=== PATIENT | male | born 1935 | race Caucasian/White ===

== ENCOUNTER 2017-12-29 09:18 | Inpatient (IN) | payer MEDICARE ==
[2017-12-29 11:56] LABS: ABS Basophils 0.1 10^3/ul (0-0.2); ABS Eosinophils 0 10^3/ul (0-0.6); ABS Monocytes 0.9 10^3/ul (0-0.8); ABS Nucleated RBC 0 10^3/ul; Eosinophil % 0.2 % (0-6); Hematocrit 41 % (42-52); Hemoglobin 13.5 g/dl (14.0-18.0); Lymphocyte % 6.9 % (25-47); Mean Corpuscular HGB Conc 33 g/dl (31-36); Mean Corpuscular Hemoglobin 30 pg (27-31); Mean Corpuscular Volume 91 fL (80-94); Nucleated Red Blood Cells % 0.1; Platelet Count 207 10^3/ul (150-450); Red Blood Count 4.51 10^6/ul (4.0-5.4); Red Cell Distribution Width 14 % (10.5-15)
--- NOTE | 2017-12-29 12:47 | RAD ---
INDICATION: Shortness of breath. COMPARISON: Comparison is made with a prior study from May 01, 2014. TECHNIQUE: Dual-energy PA and lateral views of the chest were obtained. FINDINGS: The heart is within normal limits in size. Mediastinal and hilar contours appear within normal limits. The lungs are underinflated. There is a small infiltrate at the right lung base. There appears to be a trace right pleural effusion. No pneumothorax is seen. IMPRESSION: LOW LUNG VOLUMES, SMALL RIGHT BASILAR INFILTRATE.
--- NOTE | 2017-12-29 12:50 | RAD ---
INDICATION: Right rib pain. TECHNIQUE: 4 views of the right ribs were obtained. FINDINGS: The bones appear osteopenic. No fracture is seen. IMPRESSION: NO EVIDENCE FOR FRACTURE.
[2017-12-29] MEDS ORDERED: Levofloxacin 750 MG IVPREMIX(* 750 MG/150 ML BAG IVPB ONE (13:10)
--- NOTE | 2017-12-29 15:08 | ED ---
Anmol Mathur Angela, scribed for Sb Cuevas on 12/29/17 at 1414 . Progress - Progress Note Progress Note: This pt was signed out by Dr. Johnson, pending disposition, awaiting lab work. Lab work, chest XR, right ribs XR, and EKG were obtained. Right ribs XR is negative for fractures. Chest XR shows low lung volumes, small right basilar infiltrate. In the ED course the pt was given Levaquin. I discussed pt care with Dr. Marcano, hospitalist, who has agreed to admit the pt. Re-Evaluation - Re-Evaluation First Eval Re-Evaluation Time: 14:14 Change: Worse Comment: I reviewed the lab and XR results with the pt. Pt is still c/o pain. He is saturating at 90% on room air. Course/Dx - Diagnoses Provider Diagnoses: Pneumonia - Provider Notifications Discussed Care Of Patient With: Jonathan Marcano Time Discussed With Above Provider: 15:03 Instructed by Provider To: Other - I discussed pt care with Dr. Marcano, hospitalist, who has agreed to admit the pt. Discharge - Sign-Out/Discharge Documenting (check all that apply): Discharge/Admit/Transfer - admit to [facility], Receiving Sign-Out Receiving patient FROM: Ang Johnson - Discharge Plan Condition: Stable Disposition: ADMITTED TO [facility] Referrals: Scott Cintron MD [Primary Care Provider] - The documentation as recorded by the Anmol will Angela accurately reflects the service I personally performed and the decisions made by , Sb Cuevas.
[2017-12-29] MEDS ORDERED: Albuterol 2.5 MG/3 ML NEB.SOL* (0.083%) INH PRN (15:39)
[2017-12-29] MEDS ORDERED: Ondansetron INJ* 2 MG/ML VIAL IV PRN (15:39)
[2017-12-29] MEDS ORDERED: NS 0.9% 1000 ML* 1,000 ML IV ONE (15:39)
[2017-12-29] MEDS ORDERED: NS 0.9% 1000 ML* 1,000 ML IV SCH (15:45)
[2017-12-29] MEDS ORDERED: Acetaminophen TAB* 325 MG ONE (15:47)
[2017-12-29] MEDS: Acetaminophen TAB* 325 MG PO PRN ×2 (15:50→20:41)
--- NOTE | 2017-12-29 18:21 | HP ---
CC: Dr. Cintron* HISTORY AND PHYSICAL: DATE OF ADMISSION: 12/29/17 PRIMARY CARE PROVIDER: Dr. Cintron ATTENDING PHYSICIAN WHILE IN THE HOSPITAL: Fernando Marcano MD* (report dictated by Wesley Red NP) CHIEF COMPLAINT: 1. Lower back pain, right side. 2. Weakness. 3. Not feeling well. HISTORY OF PRESENT ILLNESS: Mr. Schuster is an 82-year-old male patient. He has a history of prostate cancer, intracranial hemorrhage. He also has a history of GERD. He comes into the ER today stating that the last few days, he has been having worsening pain particularly over the weekend in his right side and his right back. He thought maybe he had pulled a muscle. He was also noted to be feeling weak. He denies having any cough. Denies any fevers or chills, but he noted today that he his chest hurt really when he took a deep breath, both sides, his ribs hurt and ribcage hurt. He just was not feeling well and now, he is kind of he says he is aching all over. He says the discomfort just was not getting any better. He was very concerned, so he decided to come into the emergency department. He says that he has not been having any nausea, vomiting. There has been no diarrhea. He denies having any abdominal discomfort. He says he has just been feeling more weak and tired. He was concerned and came into the ER. It was found that he had an elevated white count. It was found that he appear to have pneumonia on his right side and because of these findings were were asked to evaluate for admission and during my evaluation, he was running a fever at a 100.3. PAST MEDICAL HISTORY: Significant for: 1. Prostate cancer. 2. Intracranial hemorrhage. 3. GERD. PAST SURGICAL HISTORY: 1. He has had a prostatectomy. 2. He has had a gastrectomy with a vagotomy. 3. Hernia repair. 4. He has had chest tube placement. 5. He has had a hemorrhoidectomy. 6. Tonsillectomy. 7. Laparoscopic cholecystectomy. 8. Cataract extraction. MEDICATIONS: Home medications include: 1. Omeprazole 40 mg daily. 2. Fish oil 1000 mg p.o. daily. 3. Multivitamin 1 tablet daily. 4. Propranolol 30 mg p.o. b.i.d. ALLERGIES TO MEDICATIONS: Include ASPIRIN. FAMILY HISTORY: His mother had a high blood pressure and of an PA. Father had a history of black lung disease and from complications related to this. SOCIAL HISTORY: He does not smoke. He does not drink. Surrogate decision maker is his . REVIEW OF SYSTEMS: There is no documented fever at home just now, he did state that he was feeling chills. He denies having any significant weight change. There is no double vision. There is no ear discharge. He denies having any rhinorrhea. There is no sore throat. No thyroid enlargement. There was chest discomfort today, he said in his ribcage there is a sharp pain worse with taking a deep breath, but he could not get a deep breath, and he denies having any abdominal pain. There is no nausea, no vomiting. There is no dysuria. There was no frequency. There was no seizure. There was no loss of consciousness. There is no pruritus and no skin ulceration. Review of 14 systems was completed, all others negative. PHYSICAL EXAMINATION GENERAL: At this time, Mr. Schuster is an 82-year-old male patient. He is sitting in the ED stretcher. He does not appear to be in any acute distress. VITAL SIGNS: Blood pressure 129/70, pulse 96, respirations 20, O2 sat 95%, temperature 98.8. HEENT: Head: Atraumatic, normocephalic. Eyes: EOMs are intact. Sclerae anicteric and not pale. Throat: Oral mucosa appears to be dry. No oropharyngeal erythema. NECK: Supple. LUNGS: He had equal diaphragmatic expansion. He had some some crackles in the right base. HEART: Sounds S1, S2. Regular rate and rhythm. No murmurs, rubs, or gallops. ABDOMEN: Soft, flat, nontender. Bowel sounds were present. EXTREMITIES: Pulses were 2+ throughout. He is able to move all 4 extremities with 5/5 strength. NEUROLOGIC: The patient is awake. He is alert. He is oriented x3. His vascular neurologist were equal. He had no gross focal deficits. SKIN: Grossly intact. DIAGNOSTIC STUDIES/LAB DATA: Labs today, WBC of 15.0, RBC of 4.51, hemoglobin of 13.5, hematocrit of 41, platelet count of 207. Sodium was 138, potassium was 4, chloride 100, bicarb 26, BUN 14, creatinine 0.91, lactate of 1.1, calcium of 9. Total bili 0.5, AST 21, ALT 15, alk phos 139. CK 50, CK-MB 3.2, troponin 0.01, CRP of 18, albumin of 3.6. He had a chest x-ray obtained today, impression: Low lung volumes, small right basilar infiltrate. EKG shows a normal sinus rhythm, rate of 79 and flatten T-waves in lead 3, but no ST elevations were noted. The T waves in lead 3 had been inverted in the past. He had a rib x-rays as well, showed no evidence of fracture. X-ray when I reviewed it, I do see the small infiltrate in the right side. Old medical records reviewed. ASSESSMENT AND PLAN: Mr. Schuster is an 82-year-old male patient coming into the ER today with complaints of not feeling well, back pain, weakness. On evaluation here in the ED, found to have signs of early sepsis and also found to have what appears to be a pneumonia as a source. He will be admitted under inpatient status for: 1. Sepsis secondary to pneumonia. At this point, I will go head and give him a liter of fluids wide open. His blood pressure is stable. Heart rate is still tachy. He has got the white count of 15,000. His heart rates around 96 to 100. He has low-grade fever. He has been put on Levaquin. I will get legionella and strep pneumoniae antigen; in addition at this point I will also check him for flu. I will hydrate him and also we will check his urine and we will continue to follow. 2. Prostate cancer. Follow with his primary. 3. History of intracranial hemorrhage. This happened 4 years ago. Because of this, I am actually going to hold heparin subcutaneously. 4. For DVT prophylaxis, I am going to go ahead and just put him on SCDs. 5. Gastroesophageal reflux disease. Continue PPI therapy. 6. Code status. Full code. 7. Fluids, electrolytes, and nutrition. He can have a regular diet. TIME SPENT: On admission 60 minutes, greater than half the time was spent face- to- face with the patient obtaining my history and physical, other half the time was spent going over the plan of care with the patient and implementing plan of care. I did discuss the plan of care with my attending, Dr. Marcano; he is in agreement. WESLEY RED NP [id number]/[facility] #: [id number] JANE
[2017-12-29 19:24] LABS: Urine Appearance Clear; Urine Blood Negative (Negative); Urine Color Yellow; Urine Ketones 1+ (Negative); Urine Protein Negative (Negative); Urine Specific Gravity 1.018 (1.010-1.030); Urine Urobilinogen Negative (Negative)
[2017-12-29] MEDS: Propranolol TAB* 20 MG PO SCH (20:42)
--- NOTE | 2017-12-29 20:56 | ED ---
Anmol Mathur Angela, scribed for Ang Johnson MD on 12/29/17 at 1043 . Shortness of Breath - HPI Summary HPI Summary: This pt is a 82 y/o male presenting to [facility] c/o SOB for the past 1.5 years, worse now. Pt reports he had a hard time breathing this morning upon waking up and was unable to take deep breaths. He states he also has right sided rib pain. Pt notes he has to sleep on his left side because if he sleep on the right side, his rib pain will be aggravated. His rib pain is worse in the mornings. Denies cough, fever, chest pain. - History of Current Complaint Chief Complaint: EDShortnessOfBreath Time Seen by Provider: 12/29/17 10:02 Hx Obtained From: Patient Onset/Duration: Lasting Weeks, Still Present Timing: Constant Current Severity: Mild Aggrevating Factors: Nothing Alleviating Factors: Nothing Associated Signs & Symptoms: Negative - Allergy/Home Medications Allergies/Adverse Reactions: Allergies Allergy/AdvReac Type Severity Reaction Status Date / Time aspirin Allergy Bleeding Verified 12/29/17 09:25 Home Medications: Home Medications Multivitamins/Minerals TAB* [Theragran/minerals TAB*] 1 tab PO DAILY 12/29/17 [ History Confirmed 12/29/17] [place]-3 Fatty Acids (Nf) [Fish Oil (NF)] 1,000 mg PO DAILY 12/29/17 [History Confirmed 12/29/17] Omeprazole CAP* [Prilosec CAP* 20 MG] 40 mg PO DAILY 12/29/17 [History Confirmed 12/29/17] Propranolol TAB* [Inderal TAB*] 30 mg PO BID 12/29/17 [History Confirmed ] PMH/Surg Hx/FS Hx/Imm Hx Endocrine/Hematology History: Reports: Hx Anemia - VIT B12 MONTHLY Denies: Hx Diabetes - pt denies Cardiovascular History: Reports: Hx Hypertension - ON DAILY MEDS Respiratory History: Reports: Hx Pulmonary Edema - 7 YR OLD, NO PROBLEMS SINCE Comment Only: Other Respiratory Problems/Disorders - PNEUMONIA AGE 7 & 10 GI History: Reports: Hx Gastroesophageal Reflux Disease - ON DAILY MEDS, Hx Ulcer, Other GI Disorders - CHRONIC GASTRITIS, BLEEDING 1970s Musculoskeletal History: Reports: Hx Arthritis - GENERALIZED, Hx Bursitis - BOTH ELBOWS, INJURY 08/2013 Sensory History: Reports: Hx Cataracts - BILATERAL Opthamlomology History: Reports: Hx Cataracts - BILATERAL - Cancer History Cancer Type, Location and Year: prostate 1992 no radiation or chemo - Surgical History Surgery Procedure, Year, and Place: 1992 prostate CANCER. 1975 part of stomach removed r/t aspin r/t. 1973 hemorrhage per pt , vagus nerve surgery. surgery as a child for fluid in lungs following pneumonia,. 1995 BILATERAL HERNIA REPAIR. 2007 BILATERAL CATARACTS. 04/2014 subarachnoid BLEEDED, DRAINED x2 Hx Anesthesia Reactions: No Infectious Disease History: No Infectious Disease History: Denies: Traveled Outside the [place] in Last 30 Days - Family History Known Family History: Positive: Cardiac Disease, Hypertension - Social History Alcohol Use: None Substance Use Type: Reports: None Smoking Status (MU): Never Smoked Tobacco Have You Smoked in the Last Year: No Review of Systems Negative: Fever, Chills Negative: Chest Pain Positive: Shortness Of Breath. Negative: Cough Musculoskeletal: Other - right sided rib pain Neurological: Negative All Other Systems Reviewed And Are Negative: Yes Physical Exam - Summary Physical Exam Summary: VITAL SIGNS: Reviewed. GENERAL: Patient is a well-developed and nourished male who is lying comfortable in the stretcher. Patient is not in any acute respiratory distress. HEAD AND FACE: No signs of trauma. No ecchymosis, hematomas or skull depressions. No sinus tenderness. EYES: PERRLA, EOMI x 2, No injected conjunctiva, no nystagmus. EARS: Hearing grossly intact. Ear canals and tympanic membranes are within normal limits. MOUTH: Oropharynx within normal limits. NECK: Supple, trachea is midline, no adenopathy, no JVD, no carotid bruit, no c- spine tenderness, neck with full ROM. CHEST: Symmetric, no tenderness at palpation LUNGS: Coarse breath sounds bilaterally. CVS: Regular rate and rhythm, S1 and S2 present, no murmurs or gallops appreciated. ABDOMEN: Soft, non-tender. No signs of distention. No rebound no guarding, and no masses palpated. Bowel sounds are normal. EXTREMITIES: FROM in all major joints, no edema, no cyanosis or clubbing. NEURO: Alert and oriented x 3. No acute neurological deficits. Speech is normal and follows commands. SKIN: Dry and warm Triage Information Reviewed: Yes Vital Signs On Initial Exam: Initial Vitals Temp Pulse Resp BP Pulse Ox 98.8 F 74 18 154/88 98 12/29/17 09:21 12/29/17 09:21 12/29/17 09:21 12/29/17 09:21 12/29/17 09:21 Vital Signs Reviewed: Yes Diagnostics - Vital Signs Vital Signs Temp Pulse Resp BP Pulse Ox 12/29/17 10:23 80 95 12/29/17 10:22 76 156/90 95 12/29/17 09:21 98.8 F 74 18 154/88 98 - Laboratory Result Diagrams: 12/29/17 11:40 12/29/17 11:40 Lab Statement: Any lab studies that have been ordered have been reviewed, and results considered in the medical decision making process. - Radiology Chest XR Xray Interpretation: Positive (See Comments) - IMPRESSION: Low lung volumes, small right basilar infiltrate. Dr. Johnson has reviewed this radiology report. Radiology Interpretation Completed By: Radiologist Right ribs XR Xray Interpretation: No Acute Changes - IMPRESSION: No evidence for fracture. Dr. Johnson has reviewed this radiology report. Radiology Interpretation Completed By: Radiologist - EKG 11:08 Cardiac Rate: NL EKG Rhythm: Sinus Rhythm - at 79 bpm EKG Interpretation: No ST elevations. EKG Comparison: No Significant Change - similar to prior EKG on 05/01/14. Course/Dx - Course Assessment/Plan: This pt is a 82 y/o male presenting to [facility] c/o SOB for the past 1.5 years, worse now. Pt reports he had a hard time breathing this morning upon waking up and was unable to take deep breaths. He states he also has right sided rib pain. Pt notes he has to sleep on his left side because if he sleep on the right side, his rib pain will be aggravated. His rib pain is worse in the mornings. Denies cough, fever, chest pain. Chest XR shows low lung volumes , small right basilar infiltrate. Right ribs XR reveals no evidence for fracture. EKG shows sinus rhythm with no ST elevations. Test results are still pending at this point, therefore pt will be signed out at shift change. Pt will be signed out to Dr. Cuevas for further work up and management, and disposition. Pt is hemodynamically stable, alert and oriented x3. - Diagnoses Provider Diagnoses: Shortness of breath, Rib pain Discharge - Sign-Out/Discharge Documenting (check all that apply): Sign-Out Patient Signing out patient TO: Sb Cuevas - Discharge Plan Condition: Stable Discharge Disposition Comment: signed out to Dr. Cuevas, pending dispo, awaiting lab results. Referrals: Scott Cintron MD [Primary Care Provider] - The documentation as recorded by the Anmol will Angela accurately reflects the service I personally performed and the decisions made by me, Ang Johnson MD.
[2017-12-29] MEDS ORDERED: Propranolol TAB* 60 MG PO SCH (21:00)
[2017-12-29] MEDS ORDERED: traMADol TAB* 50 MG ONE (21:42)
[2017-12-29] MEDS: traMADol TAB* 50 MG PO PRN (21:44)
[2017-12-29] MEDS ORDERED: Calcium Carbonate CHEW TAB* 500 MG (TUMS) PO ONE (21:50)
[2017-12-29] MEDS ORDERED: Heparin VIAL(*) 5000 UNITS/ML VIAL (FIVE THOUSAND) SUBCUT SCH (22:00)
[2017-12-30 07:33] LABS: Hematocrit 38 % (42-52); Hemoglobin 12.7 g/dl (14.0-18.0); Mean Corpuscular HGB Conc 34 g/dl (31-36); Mean Corpuscular Hemoglobin 31 pg (27-31); Mean Corpuscular Volume 91 fL (80-94); Mean Platelet Volume 10.3 um3 (7.4-10.4); Platelet Count 186 10^3/ul (150-450); Red Blood Count 4.15 10^6/ul (4.0-5.4); Red Cell Distribution Width 14 % (10.5-15)
[2017-12-30 07:38] LABS: INR 1.11 (0.77-1.02)
[2017-12-30 07:45] LABS: EGFR Non-African American 76.1 (>60)
[2017-12-30 09:04] LABS: ABS Basophils 0 10^3/ul (0-0.2); ABS Eosinophils 0 10^3/ul (0-0.6); ABS Monocytes 1.2 10^3/ul (0-0.8); ABS Neutrophils 11.7 10^3/ul (1.5-7.7); ABS Nucleated RBC 0 10^3/ul; Eosinophil % 0.2 % (0-6); Lymphocyte % 7.3 % (25-47); Nucleated Red Blood Cells % 0.1
[2017-12-30] MEDS: Propranolol TAB* 20 MG PO SCH ×2 (09:53→22:24)
[2017-12-30] MEDS: Omeprazole CAP* 20 MG PO SCH (09:53)
[2017-12-30] MEDS: traMADol TAB* 50 MG PO PRN (10:23)
[2017-12-30] MEDS ORDERED: Iohexol 350* (CONTRAST) 500 ML MDV IV ONE (11:38)
[2017-12-30] MEDS: Levofloxacin 750 MG IVPREMIX(* 750 MG/150 ML BAG IVPB SCH (12:51)
--- NOTE | 2017-12-30 14:07 | RAD ---
HISTORY: Chest pain on inspiration COMPARISONS: Chest x-ray dated December 29, 2017 TECHNIQUE: Multiple contiguous axial CT scans of the chest were obtained after the administration of nonionic intravenous contrast, timed to the pulmonary arterial phase of contrast enhancement.. Coronal and sagittal multiplanar reformations are also submitted for review. FINDINGS: NECK AND THYROID: The lower neck and thyroid are unremarkable. CHEST WALL: There is no lower cervical, axillary, or supraclavicular lymphadenopathy by size criteria. HEART AND PERICARDIUM: Coronary and valvular cardiac calcifications are noted. AORTA AND PULMONARY VASCULATURE: There is no pulmonary arterial filling defect to suggest pulmonary embolism. There is no linear filling defect within the aorta to suggest aortic dissection. MEDIASTINUM: There is no mediastinal lymphadenopathy by size criteria. JORGE LUIS: There is no hilar lymphadenopathy by size criteria. AIRWAY AND ESOPHAGUS: The airway is unremarkable, without endobronchial filling defect. The esophagus is grossly normal. LUNG PARENCHYMA: There is compressive atelectasis of the right lower lobe. PLEURA: There is a moderate to large right pleural effusion. UPPER ABDOMEN: There is a ventral hernia containing sidewall of large bowel. BONES AND SOFT TISSUES: Degenerative changes are noted along the spine. OTHER: None. IMPRESSION: 1. NO PULMONARY ARTERIAL FILLING DEFECT TO SUGGEST PULMONARY EMBOLISM. 2. RIGHT PLEURAL EFFUSION WITH COMPRESSIVE ATELECTASIS OF THE RIGHT LOWER LOBE.
[2017-12-30] MEDS: Acetaminophen TAB* 325 MG PO PRN (14:48)
--- NOTE | 2017-12-30 18:05 | PN ---
Subjective Date of Service: 12/30/17 Interval History: No overnight events. Still complains of inspiratory pain around the right side. He has a cough but denies much sputum production. No other complaints at this time. Objective Active Medications: Acetaminophen (Tylenol Tab*) 650 mg PO Q4H PRN PRN Reason: FEVER/PAIN Last Admin: 12/30/17 14:48 Dose: 650 mg Albuterol (Ventolin 2.5 Mg/3 Ml Neb.Veronica*) 2.5 mg INH Q2H PRN PRN Reason: SOB/WHEEZING Levofloxacin/Dextrose (Levaquin 750 Mg Ivpremix(*)) 750 mg in 150 mls @ 100 mls /hr IVPB Q24H [facility] Last Admin: 12/30/17 12:51 Dose: 100 mls/hr Omeprazole (Prilosec Cap*) 40 mg PO DAILY [facility] Last Admin: 12/30/17 09:53 Dose: 40 mg Ondansetron HCl (Zofran Inj*) 4 mg IV Q6H PRN PRN Reason: NAUSEA Propranolol HCl (Inderal Tab*) 20 mg PO BID [facility] Last Admin: 12/30/17 09:53 Dose: 20 mg Tramadol HCl (Ultram*) 25 mg PO Q8H PRN PRN Reason: PAIN Last Admin: 12/30/17 10:23 Dose: 25 mg Vital Signs - 8 hr 12/30/17 12/30/17 12/30/17 10:23 11:50 12:57 Temperature 100.2 F Pulse Rate 79 Respiratory 16 18 16 Rate Blood Pressure 125/59 (mmHg) O2 Sat by Pulse 95 Oximetry 12/30/17 15:27 Temperature 100.7 F Pulse Rate 81 Respiratory 18 Rate Blood Pressure 120/46 (mmHg) O2 Sat by Pulse 95 Oximetry Oxygen Devices in Use Now: Nasal Cannula Appearance: alert, well appearing sitting up in bed Eyes: No Scleral Icterus Ears/Nose/Mouth/Throat: NL Teeth, Lips, Gums Neck: NL Appearance and Movements; NL JVP Respiratory: Symmetrical Chest Expansion and Respiratory Effort, - - no wheezes or rhonchi, no egophony Cardiovascular: NL Sounds; No Murmurs; No JVD, RRR Abdominal: NL Sounds; No Tenderness; No Distention Lymphatic: No Cervical Adenopathy Extremities: No Edema Skin: No Rash or Ulcers Neurological: Alert and Oriented x 3 Result Diagrams: 12/30/17 07:09 12/30/17 07:09 Microbiology and Other Data: Microbiology 12/29/17 19:00 Legionella Urinary Antigen - Final Urine Negative Legionella Antigen Streptococcus pneumoniae Ag Screen - Final Negative S. pneumo Antigen 12/29/17 16:25 Influenza Types A,B Antigen ([place]) - Final Nasal Specimen received for Influenza A/B Molecular testing Assess/Plan/Problems-Billing Assessment: 82 yo man with history of gerd and ICH (2013) presents with 1.5 years of intercostal pain and 1 day of shortness of breath. - Patient Problems (1) Pleural effusion Current Visit: Yes Status: Acute Code(s): J90 - PLEURAL EFFUSION, NOT ELSEWHERE CLASSIFIED SNOMED Code(s): 64213316 Comment: At admission, this was thought to be pneumonia on CXR. I got a CTA today given his pain on deep inspiration (despite this being present for a year ) and the fact that he didn't have a convincing pneumonia to me clinically to rule out PE, and it was negative for PE but does show a moderate to large pleural effusion. This may be parapneumonic, but also given his history of prostate cancer, it may be prudent to rule out malignant. I will consult pulmonology tomorrow for consideration of a thoracentesis. Continue levofloxacin for now. Wean O2 (2) GERD (gastroesophageal reflux disease) Current Visit: Yes Status: Acute Code(s): K21.9 - GASTRO-ESOPHAGEAL REFLUX DISEASE WITHOUT ESOPHAGITIS SNOMED Code(s): 871238407 Comment: continue omeprazole Status and Disposition: Inpatient for mod-large pleural effusion, needs pulm consult
[2017-12-31 06:37] LABS: Hematocrit 39 % (42-52); Hemoglobin 12.8 g/dl (14.0-18.0); Mean Corpuscular HGB Conc 33 g/dl (31-36); Mean Corpuscular Hemoglobin 30 pg (27-31); Mean Corpuscular Volume 92 fL (80-94); Mean Platelet Volume 10.5 um3 (7.4-10.4); Platelet Count 198 10^3/ul (150-450); Red Blood Count 4.22 10^6/ul (4.0-5.4); Red Cell Distribution Width 14 % (10.5-15); White Blood Count 15.9 10^3/ul (3.5-10.8)
[2017-12-31 07:04] LABS: EGFR Non-African American 75.2 (>60)
[2017-12-31 07:23] LABS: ABS Basophils 0 10^3/ul (0-0.2); ABS Eosinophils 0.1 10^3/ul (0-0.6); ABS Monocytes 1.6 10^3/ul (0-0.8); ABS Neutrophils 13.2 10^3/ul (1.5-7.7); ABS Nucleated RBC 0 10^3/ul; Eosinophil % 0.4 % (0-6); Lymphocyte % 6.4 % (25-47); Nucleated Red Blood Cells % 0
[2017-12-31] MEDS: Propranolol TAB* 20 MG PO SCH ×2 (08:37→21:17)
[2017-12-31] MEDS: Omeprazole CAP* 20 MG PO SCH (08:38)
[2017-12-31] MEDS: Levofloxacin 750 MG IVPREMIX(* 750 MG/150 ML BAG IVPB SCH ×3 (11:55→16:37)
--- NOTE | 2017-12-31 14:32 | RAD ---
INDICATION: Ultrasound guidance for thoracentesis right side. COMPARISON: Correlation is made with a prior CT angiogram of the chest from December 30, 2017. TECHNIQUE: Multiple real-time images of the chest on the right side were obtained. FINDINGS: There is a small size right pleural effusion. A site on the posterior chest wall on the right side was marked for a thoracentesis to follow. IMPRESSION: SMALL RIGHT PLEURAL EFFUSION SITE MARKED FOR THORACENTESIS.
[2017-12-31] MEDS: Acetaminophen TAB* 325 MG PO PRN (15:52)
--- NOTE | 2017-12-31 17:06 | CONS ---
PULMONARY CONSULTATION REPORT: DATE OF CONSULT: 12/31/17 CONSULTATION REQUESTED BY: Dr. Jackson. REASON FOR CONSULT: Evaluation of pleural effusion. HISTORY OF PRESENT ILLNESS: The patient is an 82-year-old male with history of prostate cancer, intracranial hemorrhage, history of previous pneumonia, empyema , status post chest tube placement when he was 7 years old, who comes in for evaluation of worsening chest pain, generalized malaise, and difficulty taking deep breath. Further evaluation revealed pleural effusion on the right side. Pulmonary consultation was requested for evaluation of pleural effusion. The patient was seen and examined at bedside. The patient is an elderly male, sitting up in chair, in no apparent distress. The patient reports having discomfort in his right chest for the past 1 year. The discomfort was never severe enough to warrant any evaluation. The patient reported that he has been having increasing difficulty taking deep breath over the past few days. The patient also reports generalized malaise and achiness. The patient reports no nausea, vomiting, or diarrhea. The patient denies abdominal discomfort. He also has been increasingly weak. The patient denies significant cough, sputum production. He had just intermittent cough with white phlegm production. The patient denies recent travel. The patient denies any sick contacts. The patient denies fevers or chills at home, was noted to having low-grade fever at 100.3 in the ED. PAST MEDICAL HISTORY: 1. Prostate cancer. 2. Intracranial hemorrhage. 3. GERD. PAST SURGICAL HISTORY: 1. Prostatectomy. 2. Gastrectomy and vagotomy. 3. Hernia repair. 4. Chest tube placement at 7 years age for empyema. 5. Hemorrhoidectomy. 6. Tonsillectomy. 7. Laparoscopic cholecystectomy. 8. Cataract extraction. MEDICATIONS: 1. Omeprazole. 2. Fish oil. 3. Multivitamin. 4. Propranolol. ALLERGIES TO MEDICATIONS: ASPIRIN. FAMILY HISTORY: Mother with high blood pressure. Father of [place]. The patient reports that father had black lung disease and from complications related to it. SOCIAL HISTORY: He does not smoke or drink alcohol. He lives at home with his . REVIEW OF SYSTEMS: All 14 systems reviewed and as per HPI. PHYSICAL EXAM: The patient in bed, in no apparent distress. Vital Signs: Temperature 99.8, pulse 71 beats per minute, respiratory rate 16 per minute, O2 sat 96% on 1.5 L, blood pressure 135/65. HEENT: Pupils equal, reactive to light. Mucous membranes moist. Neck: Supple. No JVD. Lungs: Good air entry bilaterally. Crackles at right base. Cardiovascular: S1 and S2 present, regular. Abdomen: Soft, nontender, nondistended. Bowel sounds are present. Extremities: Normal range of motion. Skin: No rash or bruises. DIAGNOSTIC STUDIES/LAB DATA: WBC count 15.9, hemoglobin 12.8, hematocrit 39, platelet count 198. Sodium 134, potassium 4.0, chloride 102, bicarb 26, BUN 15 , creatinine 0.96, glucose 118, calcium 8.5. LFTs within normal limits except for slightly elevated alk phos at 113. Albumin is 3.0. Total protein is decreased at 6.1. Influenza A and B negative. Legionella and Strep pneumo negative. Blood cultures negative to date. CTA of the chest performed on 12/30/17 was personally reviewed by me. The patient with evidence of right-sided pleural effusion, [id number] with compressive atelectasis. No other suspicious nodules or masses were noted. Tiny pleural effusion on the left base was noted. Mildly thickened pleura was noted. No significant mediastinal or hilar adenopathy noted. IMPRESSION AND RECOMMENDATIONS: 82-year-old male, nonsmoker, with evidence of right-sided pleural effusion, symptomatic with chest tightness and inability taking deep breath and intermittent cough. Pleural effusion - unclear etiology secondary to infection versus inflammatory, he has history of arthritis, likely rheumatoid arthritis history, has chest pain for about a year versus sec to atelectasis sec to splinting from pain. Given the age and prior prostate cancer history, will need to rule out malignancy. Will perform thoracentesis with ultrasound guidance on the bedside today. Procedure was discussed in detail with the patient. Associated risks and benefits were thoroughly discussed. Risk of pneumothorax was discussed. The patient is agreeable to the procedure. Will send pleural fluid once drained for cytological, biochemical, and hematological exam once drained. Further recommendations pending thoracentesis. Agree with continuing current antibiotics. Thank you for allowing me to participate in the care of your patient. Will follow up with you. [id number]/CPS #: [id number] JANE
--- NOTE | 2017-12-31 17:31 | PN ---
Subjective Date of Service: 12/31/17 Interval History: Dr. Ayoub attempted to perform thoracentesis today but the US did not show enough fluid. He feels a little better but just had a fever, so he doesn't feel well right now. Still with a little cough. Social History: Unchanged from Admission Past Medical History: Unchanged from Admission Objective Active Medications: Acetaminophen (Tylenol Tab*) 650 mg PO Q4H PRN PRN Reason: FEVER/PAIN Last Admin: 12/31/17 15:52 Dose: 650 mg Albuterol (Ventolin 2.5 Mg/3 Ml Neb.Veronica*) 2.5 mg INH Q2H PRN PRN Reason: SOB/WHEEZING Levofloxacin/Dextrose (Levaquin 750 Mg Ivpremix(*)) 750 mg in 150 mls @ 100 mls /hr IVPB Q24H [facility] Last Admin: 12/31/17 16:37 Dose: 100 mls/hr Omeprazole (Prilosec Cap*) 40 mg PO DAILY [facility] Last Admin: 12/31/17 08:38 Dose: 40 mg Ondansetron HCl (Zofran Inj*) 4 mg IV Q6H PRN PRN Reason: NAUSEA Propranolol HCl (Inderal Tab*) 20 mg PO BID [facility] Last Admin: 12/31/17 08:37 Dose: 20 mg Tramadol HCl (Ultram*) 25 mg PO Q8H PRN PRN Reason: PAIN Last Admin: 12/30/17 10:23 Dose: 25 mg Vital Signs - 8 hr 12/31/17 12/31/17 12/31/17 11:02 15:18 16:42 Temperature 99.8 F 101.9 F 101.3 F Pulse Rate 71 87 Respiratory 16 20 Rate Blood Pressure 135/65 148/60 (mmHg) O2 Sat by Pulse 96 89 Oximetry Oxygen Devices in Use Now: Nasal Cannula Appearance: alert, no distress, breathing comfortably Eyes: No Scleral Icterus Ears/Nose/Mouth/Throat: NL Teeth, Lips, Gums Neck: NL Appearance and Movements; NL JVP, Trachea Midline Respiratory: Symmetrical Chest Expansion and Respiratory Effort, - - no wheezes , rhonchi, egophony Cardiovascular: NL Sounds; No Murmurs; No JVD, RRR Lymphatic: No Cervical Adenopathy Extremities: No Edema Skin: No Rash or Ulcers Neurological: Alert and Oriented x 3 Result Diagrams: 12/31/17 06:00 12/31/17 06:03 Microbiology and Other Data: Microbiology 12/29/17 19:00 Legionella Urinary Antigen - Final Urine Negative Legionella Antigen Streptococcus pneumoniae Ag Screen - Final Negative S. pneumo Antigen 12/29/17 16:25 Influenza Types A,B Antigen ([place]) - Final Nasal Specimen received for Influenza A/B Molecular testing Assess/Plan/Problems-Billing Assessment: 82 yo man with history of gerd and ICH (2013) presents with 1.5 years of intercostal pain and 1 day of shortness of breath. - Patient Problems (1) Community acquired pneumonia Current Visit: Yes Status: Acute Code(s): J18.9 - PNEUMONIA, UNSPECIFIED ORGANISM SNOMED Code(s): 704180092 Comment: improving, but would like for him to be afebrile prior to discharge continue levofloxacin cultures negative (2) Pleural effusion Current Visit: Yes Status: Acute Code(s): J90 - PLEURAL EFFUSION, NOT ELSEWHERE CLASSIFIED SNOMED Code(s): 88126589 Comment: CT showed a moderate to large effusion, but ultrasound by pulmonology did not show enough to complete a thoracentesis Continue levofloxacin for now. Wean O2 (3) GERD (gastroesophageal reflux disease) Current Visit: Yes Status: Acute Code(s): K21.9 - GASTRO-ESOPHAGEAL REFLUX DISEASE WITHOUT ESOPHAGITIS SNOMED Code(s): 501112240 Comment: continue omeprazole Status and Disposition: Inpatient
[2018-01-01 06:59] LABS: ABS Basophils 0 10^3/ul (0-0.2); ABS Eosinophils 0.1 10^3/ul (0-0.6); ABS Lymphocytes 0.8 10^3/ul (1.0-4.8); ABS Monocytes 1.2 10^3/ul (0-0.8); ABS Neutrophils 9.8 10^3/ul (1.5-7.7); ABS Nucleated RBC 0 10^3/ul; Eosinophil % 0.6 % (0-6); Hematocrit 37 % (42-52); Hemoglobin 12.4 g/dl (14.0-18.0); Lymphocyte % 6.5 % (25-47); Mean Corpuscular HGB Conc 33 g/dl (31-36); Mean Corpuscular Hemoglobin 30 pg (27-31); Mean Corpuscular Volume 91 fL (80-94); Mean Platelet Volume 9.9 um3 (7.4-10.4); Nucleated Red Blood Cells % 0.1; Platelet Count 182 10^3/ul (150-450); Red Blood Count 4.08 10^6/ul (4.0-5.4); Red Cell Distribution Width 14 % (10.5-15); White Blood Count 11.9 10^3/ul (3.5-10.8)
[2018-01-01] MEDS: Propranolol TAB* 20 MG PO SCH ×2 (08:50→21:57)
[2018-01-01] MEDS: Omeprazole CAP* 20 MG PO SCH (08:50)
[2018-01-01] MEDS: Acetaminophen TAB* 325 MG PO PRN (16:17)
[2018-01-01] MEDS: Levofloxacin 750 MG IVPREMIX(* 750 MG/150 ML BAG IVPB SCH (16:17)
--- NOTE | 2018-01-01 18:07 | PN ---
Subjective Date of Service: 01/01/18 Interval History: Pt seen and examined. Meds and labs reviewed. Met with pt's daughter and at bedside. Pt and family satisfied and happy of pt's care. ROS: Earlier today, pt complained of right sided chest pain, likely due to right sided PNA. Denied MORALES/dizziness, F/C, N/V, CP, SOB, increased cough, sputum production, abd pain, diarrhea, constipation, dysuria, myalgias, arthralgias, throat pain, and new skin lesions. The rest of the 14 point ROS are unremarkable. PHYSICAL EXAM: GEN APPEARANCE: Awake, not in acute distress HEENT: NC/AT, PERRLA, moist oral mucosa, (-) throat erythema NECK: Soft, supple, (-) cervical LAD, (-)JVD HEART: S1S2 WNL, RRR, No MRG CHEST: CTA, BL, GAE, No W/R/R ABD: Soft, ND/NT, NABS 4x Q EXT: No C/C/E SKIN: Warm to touch PSYCH: No active psychosis, hallucinations, depression, SI/HI Social History: Unchanged from Admission Past Medical History: Unchanged from Admission Objective Active Medications: Acetaminophen (Tylenol Tab*) 650 mg PO Q4H PRN PRN Reason: FEVER/PAIN Last Admin: 01/01/18 16:17 Dose: 650 mg Albuterol (Ventolin 2.5 Mg/3 Ml Neb.Veronica*) 2.5 mg INH Q2H PRN PRN Reason: SOB/WHEEZING Levofloxacin/Dextrose (Levaquin 750 Mg Ivpremix(*)) 750 mg in 150 mls @ 100 mls /hr IVPB Q24H [facility] Last Admin: 01/01/18 16:17 Dose: 100 mls/hr Omeprazole (Prilosec Cap*) 40 mg PO DAILY [facility] Last Admin: 01/01/18 08:50 Dose: 40 mg Ondansetron HCl (Zofran Inj*) 4 mg IV Q6H PRN PRN Reason: NAUSEA Last Admin: 12/31/17 21:17 Dose: 4 mg Propranolol HCl (Inderal Tab*) 20 mg PO BID [facility] Last Admin: 01/01/18 08:50 Dose: 20 mg Tramadol HCl (Ultram*) 25 mg PO Q8H PRN PRN Reason: PAIN Last Admin: 12/30/17 10:23 Dose: 25 mg Vital Signs - 8 hr 01/01/18 01/01/18 11:47 16:06 Temperature 99.1 F 100.1 F Pulse Rate 91 80 Respiratory 16 16 Rate Blood Pressure 138/50 130/53 (mmHg) O2 Sat by Pulse 97 94 Oximetry Oxygen Devices in Use Now: Nasal Cannula Result Diagrams: 01/01/18 06:45 12/31/17 06:03 Microbiology and Other Data: Microbiology 12/29/17 19:00 Legionella Urinary Antigen - Final Urine Negative Legionella Antigen Streptococcus pneumoniae Ag Screen - Final Negative S. pneumo Antigen 12/29/17 16:25 Influenza Types A,B Antigen ([place]) - Final Nasal Specimen received for Influenza A/B Molecular testing Assess/Plan/Problems-Billing Assessment: 82 yo man with history of gerd and ICH (2013) presents with 1.5 years of intercostal pain and 1 day of shortness of breath. - Patient Problems (1) Community acquired pneumonia Current Visit: Yes Status: Acute Code(s): J18.9 - PNEUMONIA, UNSPECIFIED ORGANISM SNOMED Code(s): 055483088 Comment: improving--last febrile episode was late afternoon yesterday --Continue Levaquin --Cultures unremarkable (2) GERD (gastroesophageal reflux disease) Current Visit: Yes Status: Acute Code(s): K21.9 - GASTRO-ESOPHAGEAL REFLUX DISEASE WITHOUT ESOPHAGITIS SNOMED Code(s): 323512424 Comment: continue omeprazole (3) Pleural effusion Current Visit: Yes Status: Acute Code(s): J90 - PLEURAL EFFUSION, NOT ELSEWHERE CLASSIFIED SNOMED Code(s): 12585671 Comment: --CT showed a moderate to large effusion, but ultrasound by pulmonology did not show enough to complete a thoracentesis --Continue levofloxacin for now. --Wean O2 (4) DVT prophylaxis Current Visit: Yes Comment: Will place on SCDs Status and Disposition: --For possible D/C in 1-2 days
[2018-01-02] MEDS: traMADol TAB* 50 MG PO PRN ×2 (02:20→10:12)
[2018-01-02 06:50] LABS: Hematocrit 35 % (42-52); Hemoglobin 11.8 g/dl (14.0-18.0); Mean Corpuscular HGB Conc 34 g/dl (31-36); Mean Corpuscular Hemoglobin 31 pg (27-31); Mean Corpuscular Volume 91 fL (80-94); Mean Platelet Volume 10.5 um3 (7.4-10.4); Platelet Count 197 10^3/ul (150-450); Red Blood Count 3.87 10^6/ul (4.0-5.4); Red Cell Distribution Width 14 % (10.5-15); White Blood Count 10.2 10^3/ul (3.5-10.8)
[2018-01-02 07:17] LABS: ABS Basophils 0 10^3/ul (0-0.2); ABS Eosinophils 0.2 10^3/ul (0-0.6); ABS Monocytes 1.2 10^3/ul (0-0.8); ABS Neutrophils 7.8 10^3/ul (1.5-7.7); ABS Nucleated RBC 0 10^3/ul; Eosinophil % 1.6 % (0-6); Lymphocyte % 9.8 % (25-47); Nucleated Red Blood Cells % 0
[2018-01-02] MEDS: Propranolol TAB* 20 MG PO SCH ×2 (08:34→19:53)
[2018-01-02] MEDS: Omeprazole CAP* 20 MG PO SCH (08:34)
[2018-01-02] MEDS: Acetaminophen TAB* 325 MG PO PRN ×2 (08:45→19:53)
--- NOTE | 2018-01-02 14:52 | PN ---
Subjective Date of Service: 01/02/18 Interval History: Pt seen and examined. Meds and labs reviewed. ROS: Denied MORALES/dizziness, F/C, N/V, CP, SOB, increased cough, sputum production , abd pain, diarrhea, constipation, dysuria, myalgias, arthralgias, throat pain , and new skin lesions. The rest of the 14 point ROS are unremarkable. PHYSICAL EXAM: GEN APPEARANCE: Awake, not in acute distress HEENT: NC/AT, PERRLA, moist oral mucosa, (-) throat erythema NECK: Soft, supple, (-) cervical LAD, (-)JVD HEART: S1S2 WNL, RRR, No MRG CHEST: CTA, BL, GAE, No W/R/R ABD: Soft, ND/NT, NABS 4x Q EXT: No C/C/E SKIN: Warm to touch PSYCH: No active psychosis, hallucinations, depression, SI/HI Social History: Unchanged from Admission Past Medical History: Unchanged from Admission Objective Active Medications: Acetaminophen (Tylenol Tab*) 650 mg PO Q4H PRN PRN Reason: FEVER/PAIN Last Admin: 01/02/18 08:45 Dose: 650 mg Albuterol (Ventolin 2.5 Mg/3 Ml Neb.Veronica*) 2.5 mg INH Q2H PRN PRN Reason: SOB/WHEEZING Levofloxacin/Dextrose (Levaquin 750 Mg Ivpremix(*)) 750 mg in 150 mls @ 100 mls /hr IVPB Q24H [facility] Last Admin: 01/01/18 16:17 Dose: 100 mls/hr Omeprazole (Prilosec Cap*) 40 mg PO DAILY [facility] Last Admin: 01/02/18 08:34 Dose: 40 mg Ondansetron HCl (Zofran Inj*) 4 mg IV Q6H PRN PRN Reason: NAUSEA Last Admin: 12/31/17 21:17 Dose: 4 mg Propranolol HCl (Inderal Tab*) 20 mg PO BID [facility] Last Admin: 01/02/18 08:34 Dose: 20 mg Tramadol HCl (Ultram*) 25 mg PO Q8H PRN PRN Reason: PAIN Last Admin: 01/02/18 10:12 Dose: 25 mg Vital Signs - 8 hr 01/02/18 01/02/18 01/02/18 07:44 08:00 10:12 Temperature 98.6 F Pulse Rate 73 Respiratory 16 20 16 Rate Blood Pressure 131/56 (mmHg) O2 Sat by Pulse 95 Oximetry 01/02/18 01/02/18 11:52 12:19 Temperature 98.4 F Pulse Rate 67 Respiratory 24 18 Rate Blood Pressure 103/55 (mmHg) O2 Sat by Pulse 95 Oximetry Oxygen Devices in Use Now: Nasal Cannula Result Diagrams: 01/02/18 06:32 01/02/18 06:32 Microbiology and Other Data: Microbiology 12/29/17 19:00 Legionella Urinary Antigen - Final Urine Negative Legionella Antigen Streptococcus pneumoniae Ag Screen - Final Negative S. pneumo Antigen 12/29/17 16:25 Influenza Types A,B Antigen ([place]) - Final Nasal Specimen received for Influenza A/B Molecular testing Assess/Plan/Problems-Billing Assessment: 82 yo man with history of gerd and ICH (2013) presents with 1.5 years of intercostal pain and 1 day of shortness of breath. - Patient Problems (1) Community acquired pneumonia Current Visit: Yes Status: Acute Code(s): J18.9 - PNEUMONIA, UNSPECIFIED ORGANISM SNOMED Code(s): 230463717 Comment: improving--last febrile episode was late afternoon yesterday --Continue Levaquin D#3/5 --Cultures unremarkable (2) GERD (gastroesophageal reflux disease) Current Visit: Yes Status: Acute Code(s): K21.9 - GASTRO-ESOPHAGEAL REFLUX DISEASE WITHOUT ESOPHAGITIS SNOMED Code(s): 930432227 Comment: continue omeprazole (3) Pleural effusion Current Visit: Yes Status: Acute Code(s): J90 - PLEURAL EFFUSION, NOT ELSEWHERE CLASSIFIED SNOMED Code(s): 37419372 Comment: --CT showed a moderate to large effusion, but ultrasound by pulmonology did not show enough to complete a thoracentesis --Continue levofloxacin for now. --Wean O2 (4) DVT prophylaxis Current Visit: Yes Comment: Will place on SCDs Status and Disposition: --For possible D/C in AM --Will await PT eval to evaluate for any possible D/C needs
[2018-01-02] MEDS: Levofloxacin 750 MG IVPREMIX(* 750 MG/150 ML BAG IVPB SCH (16:33)
[2018-01-03] MEDS: traMADol TAB* 50 MG PO PRN (00:19)
[2018-01-03] MEDS: Acetaminophen TAB* 325 MG PO PRN (06:22)
[2018-01-03 06:48] LABS: Hematocrit 35 % (42-52); Hemoglobin 12.1 g/dl (14.0-18.0); Mean Corpuscular HGB Conc 34 g/dl (31-36); Mean Corpuscular Hemoglobin 31 pg (27-31); Mean Corpuscular Volume 90 fL (80-94); Mean Platelet Volume 10.3 um3 (7.4-10.4); Platelet Count 215 10^3/ul (150-450); Red Blood Count 3.93 10^6/ul (4.0-5.4); Red Cell Distribution Width 14 % (10.5-15); White Blood Count 8.9 10^3/ul (3.5-10.8)
[2018-01-03 07:20] LABS: ABS Basophils 0 10^3/ul (0-0.2); ABS Eosinophils 0.4 10^3/ul (0-0.6); ABS Monocytes 1.2 10^3/ul (0-0.8); ABS Neutrophils 6.4 10^3/ul (1.5-7.7); ABS Nucleated RBC 0 10^3/ul; Eosinophil % 4.1 % (0-6); Lymphocyte % 10.9 % (25-47); Nucleated Red Blood Cells % 0
[2018-01-03] MEDS: Propranolol TAB* 20 MG PO SCH (08:00)
[2018-01-03] MEDS: Omeprazole CAP* 20 MG PO SCH (08:00)
[2018-01-03] MEDS: Levofloxacin 750 MG IVPREMIX(* 750 MG/150 ML BAG IVPB SCH (15:06)
[2018-01-03 15:35] VITALS: BP 141/60
--- NOTE | 2018-01-03 17:06 | DS ---
CC: Dr. Cintron * DISCHARGE SUMMARY: DATE OF ADMISSION: DATE OF DISCHARGE: 01/03/18 DISCHARGE DIAGNOSES: As follows: 1. Community-acquired pneumonia. 2. Gastroesophageal reflux disease, improved. 3. Pleural effusion likely secondary to community-acquired pneumonia. HISTORY OF PRESENT ILLNESS/HOSPITAL COURSE: The patient is an 82-year-old gentleman with history of prostate cancer, intracranial hemorrhage and GERD, who presented to the ED on 12/29/17 at [facility] [place] [facility] after having had some worsening pain, particularly on the right side of his back, radiating to the scapula for a few days prior to admission. On admission, he was found to have pneumonia with sepsis and was given aggressive fluids resuscitation and IV antibiotics and has been placed on Levaquin. His sepsis has been subsequently resolved and during his hospital course, he intermittently would complain of some right-sided chest pain as well as GERD, both of which were addressed and now resolved. His blood cultures were all negative and has been finalized and were drawn in 12/29/17. An attempt was made for diagnostic thoracentesis, however, there was not enough fluid to sample. He was also found to be negative for legionella and Strep pneumoniae urine antigen. He underwent ambulatory saturation the day before and the day of his discharge and he meets criteria for being placed on 2 L of O2 while ambulating and hence this will be provided as part of his discharge medications. Patient also had a one time T-max of 100.3, thought to be due to microaspiration given improving leukocytosis with normal physical exam and improving symptoms such as shortness of breath and hypoxia. Patient had been advised to follow up with patient's PCP within 3 days post discharge. PHYSICAL EXAMINATION: Reveals the following vital signs of temperature of 98.7 degrees Fahrenheit, blood pressure of 122/58, and 72 beats per minute heart rate , 18 per minute respiratory rate, saturating at 96%. General Appearance: The patient is awake, not in acute distress. HEENT: Normocephalic, atraumatic. PERRLA, extraocular muscles are intact. Negative for icterus. Moist oral mucosa. Negative for throat erythema. Neck is soft, supple with no cervical lymphadenopathy. No JVD. Heart: S1, S2 within normal limits. Regular rate and rhythm. No murmurs, rubs or gallops. Chest: Clear to auscultation bilaterally. Good air entry. No wheezes, rales or rhonchi. Abdomen: Soft, nondistended, nontender. Normoactive bowel sounds x4. Extremities: No cyanosis or clubbing. No edema. Psychiatric: No active psychosis, depression, suicidal or homicidal ideations. Skin is warm to touch. DISCHARGE MEDICATIONS: As follows: 1. Tylenol. 2. Omeprazole. 3. Propranolol. 4. Tramadol. 5. Levaquin only for 2 days. 6. Multivitamins. 7. [place]-3 fatty acids. 8. [employer] TIME SPENT: The total time spent evaluating the patient, reviewing pertinent data and appropriate documentation is greater than 30 minutes. [id number]/CPS #: [id number] JANE
== END 2018-01-03 17:30 | disposition home or self-care (01) | DRG 871 ==
LOC: ED 09:18 → MED 15:36
PROVIDERS: ADMIT Internal Medicine; ATTEND Student in an Organized Health Care Education/Training Program
PROC: 0WJ93ZZ Inspection of Right Pleural Cavity, Percutaneous Approach (ICD-10-PCS; principal; 2017-12-31)
DX: A41.9 Sepsis, unspecified organism (principal); J18.8 Other pneumonia, unspecified organism; J90 Pleural effusion, not elsewhere classified; K21.9 Gastro-esophageal reflux disease without esophagitis; Z85.46 Personal history of malignant neoplasm of prostate; Z79.899 Other long term (current) drug therapy; Z88.6 Allergy status to analgesic agent; Z82.49 Family history of ischemic heart disease and other diseases of the circulatory system; Z82.5 Family history of asthma and other chronic lower respiratory diseases
CPT/HCPCS: 36415; 71046; 71275; 76604; 80048; 80053; 81003; 82550; 82553; 83605; 83615; 83735; 84484; 85025; 85610; 86140; 87040; 87502; 87899; 93005; 94760; 99284; A9270-GY; G8978-GP-CJ; G8979-GP-CI; J2405; Q9967